=== PATIENT | female | born 1945 | race Two or more races ===

== ENCOUNTER 2017-12-14 07:47 | Day surgery (SDC) | payer OTHER ==
[~2017-12-14 07:47] MED LIST: INTESTINEX680 MG PO; OMEPRAZOLE20 MG PO; PERCOCET 5/3251 TAB PO; ZANTAC300 MG PO; [UNRECOGNIZED DRUG - OTHER] PO
== END 2017-12-14 13:40 | disposition home or self-care (01) ==
LOC: AMB-ENDOS 07:47
DX: R10.12 Left upper quadrant pain (principal); K43.2 Incisional hernia without obstruction or gangrene; Z85.038 Personal history of other malignant neoplasm of large intestine

== ENCOUNTER 2019-08-01 08:00 | Day surgery (SDC) | payer OTHER | END 2019-08-01 12:40 | disposition home or self-care (01) | LOC: AMB-ENDOS 08:00 | DX: D12.3 Benign neoplasm of transverse colon (principal) ==